=== PATIENT | female | born 1940 ===

== ENCOUNTER 2020-09-12 10:26 | Emergency (ER) | payer OTHER ==
[~2020-09-12] VITALS: Ht 154.9 cm; Wt 72.6 kg
[~2020-09-12 10:26] MED LIST: CELEBREX100 MG; DOLOGESIC CAPLE1 TAB; LISINOPRIL30 MG; LYRICA150 MG; METFORMIN HCL750 MG; PLAVIX75 MG; SYNTHROID50 MCG
== END 2020-09-12 14:13 | disposition home or self-care (01) ==
LOC: ER 10:26
DX: K52.89 Other specified noninfective gastroenteritis and colitis (principal); I10 Essential (primary) hypertension